=== PATIENT | male | born 1945 | race Caucasian/White ===

== ENCOUNTER 2020-07-07 01:36 | Inpatient (IN) | payer MEDICARE, OTHER ==
[~2020-07-07] VITALS: Ht 182.9 cm; Wt 90.4 kg
[2020-07-07 02:29] LABS: PCO2 Arterial 37.8 mmHg (35-45); PO2 Arterial 67.9 mmHg (80-100); pH Blood Arterial 7.44 (7.35-7.45)
[2020-07-07 02:38] LABS: Source, Urine Catheter
[2020-07-07] MEDS ORDERED: METO50ER (02:38)
[2020-07-07] MEDS ORDERED: ELIQUIS2.5 MG PO (02:38)
[2020-07-07] MEDS ORDERED: Amiodarone HCl200 MG PO (02:38)
[2020-07-07] MEDS ORDERED: QUET25 PO (02:38)
[2020-07-07 02:39] LABS: BASOPHILS ABSOLUTE AUTO 0.02 K/mm3 (0.00-0.23); BASOPHILS PERCENT AUTO 0 % (0-2); EOSINOPHILS ABSOLUTE AUTO 0.02 K/mm3 (0.00-0.68); EOSINOPHILS PERCENT AUTO 0 % (0-6); Hematocrit 40.3 % (37.0-53.0); Hemoglobin 13.5 g/dL (13.5-17.5); IMMATURE GRAN ABSOLUTE AUTO 0.04 K/mm3 (0.00-0.10); IMMATURE GRAN PERCENT AUTO 1 % (0-1); LYMPHOCYTES ABSOLUTE AUTO 0.94 K/mm3 (0.84-5.20); LYMPHOCYTES PERCENT AUTO 13 % (21-46); MONOCYTES ABSOLUTE AUTO 0.47 K/mm3 (0.16-1.47); MONOCYTES PERCENT AUTO 6 % (4-13); Mean Corpuscular HGB 29.6 pg (26.0-34.0); Mean Corpuscular HGB Conc 33.5 g/dL (31.5-36.5); Mean Corpuscular Volume 88 fL (80-100); Mean Platelet Volume 11.2 fL (9.1-12.4); NEUTROPHILS PERCENT AUTO 80 % (41-73); Platelet Count 129 K/mm3 (150-400); RDW Coefficient Variation 14.2 % (11.7-14.2); RDW Standard Deviation 45.7 fL (35.1-46.3); Red Blood Cell Count 4.56 M/mm3 (4.30-5.90); White Blood Cell Count 7.29 K/mm3 (4.00-11.30)
[2020-07-07] MEDS ORDERED: ATOR20 PO (02:39)
[2020-07-07] MEDS ORDERED: TAMS.4ER PO (02:39)
[2020-07-07 02:42] LABS: Bilirubin, Urine Neg (Neg); Blood, Urine Neg (Neg); Glucose Qualitative, Urine 4+ (Neg); Ketones, Urine Neg (Neg); Leukocyte Esterase, Urine Neg (Neg); Nitrite, Urine Neg (Neg); Protein, Urine 2+ (Neg); Urobilinogen, Urine NORM (Normal)
[2020-07-07 02:53] LABS: Albumin, Blood 3.6 g/dL (3.4-5.0); Albumin/Globulin Ratio 1.1 (0.8-1.8); Bilirubin, Total 0.7 mg/dL (0.1-1.0); Calcium, Blood 8.5 mg/dL (8.5-10.1); Creatinine, Blood 1.79 mg/dL (0.60-1.20); Globulin, Blood 3.2 g/dL (2.2-4.0); Potassium, Blood 3.8 mmol/L (3.5-5.5); Total Protein, Blood 6.8 g/dL (6.4-8.2); Troponin I 0.074 ng/mL (0.000-0.040)
[2020-07-07 02:56] LABS: Appearance, Urine Clear (Clear); Color, Urine Yellow (P-Yellow)
[2020-07-07 02:57] LABS: Bacteria Few /hpf; Red Blood Cells, Urine 0-2 /hpf (0-2); Squamous Epithelial Cells Not Seen /hpf (Few); White Blood Cells, Urine 0-2 /hpf (0-5)
[2020-07-07 06:10] LABS: BASOPHILS ABSOLUTE AUTO 0.03 K/mm3 (0.00-0.23); BASOPHILS PERCENT AUTO 0 % (0-2); EOSINOPHILS ABSOLUTE AUTO 0.03 K/mm3 (0.00-0.68); EOSINOPHILS PERCENT AUTO 0 % (0-6); Hematocrit 36.7 % (37.0-53.0); Hemoglobin 12.3 g/dL (13.5-17.5); IMMATURE GRAN ABSOLUTE AUTO 0.03 K/mm3 (0.00-0.10); IMMATURE GRAN PERCENT AUTO 0 % (0-1); LYMPHOCYTES ABSOLUTE AUTO 1.09 K/mm3 (0.84-5.20); LYMPHOCYTES PERCENT AUTO 12 % (21-46); MONOCYTES ABSOLUTE AUTO 0.73 K/mm3 (0.16-1.47); MONOCYTES PERCENT AUTO 8 % (4-13); Mean Corpuscular HGB 29.7 pg (26.0-34.0); Mean Corpuscular HGB Conc 33.5 g/dL (31.5-36.5); Mean Corpuscular Volume 89 fL (80-100); Mean Platelet Volume 11.2 fL (9.1-12.4); NEUTROPHILS ABSOLUTE AUTO 7.19 K/mm3 (1.96-9.15); NEUTROPHILS PERCENT AUTO 79 % (41-73); Platelet Count 132 K/mm3 (150-400); RDW Coefficient Variation 14.3 % (11.7-14.2); RDW Standard Deviation 46.2 fL (35.1-46.3); Red Blood Cell Count 4.14 M/mm3 (4.30-5.90)
[2020-07-07 06:27] LABS: Albumin, Blood 3.1 g/dL (3.4-5.0); Albumin/Globulin Ratio 1.1 (0.8-1.8); Bilirubin, Total 0.5 mg/dL (0.1-1.0); Bun/Creatinine Ratio 23.8 (12.0-20.0); Creatinine, Blood 1.64 mg/dL (0.60-1.20); Globulin, Blood 2.9 g/dL (2.2-4.0); Potassium, Blood 3.4 mmol/L (3.5-5.5)
--- NOTE | 2020-07-07 06:30 | NUR ---
PT ARRIVES TO ICU 4 FROM ED AT 0300. REPORT RECEIVED. PT TRANSFER PATIENT FROM [facility]. AMS WITH AGITATION. PROJECTILE VOMITING AND UNABLE TO PROTECT AIRWAY. PT INTUBATED. AC 14, 500, FIO2 35 %, PEEP 5. PT ON PROPOFOL AT 15 MCG'S/KG/MIN. VERSED DRIP AT 2MG. HAVE SINCE DECREASED TO 1.5 MG. PT MAINTAINS OXYGEN SATURATIONS > 90 PERCENT. SINUS REID FROM RATES OF 49- 50'S. BLOOD PRESSURES REMAINS STABLE WITH MAP REMAINING > 60. PT IN NO APPARENT DISTRESS. PT'S DAUGHTER DINA HAS CALLED TO CHECK ON PT. UPDATE GIVEN. SHE STATES THAT PT'S HAS DIFFICULTY WITH INFORMATION ON TELEPHONE AND HAS REQUESTED HERSELF TO BE FIRST CALL, AND THAT SHE WOULD RELAY INFORMATION TO HER MOTHER. PT ARRIVES WITH 95.0 TEMP PER MCFADDEN TEMP PROBE. TEMPORAL TEMPERATURE WAS 96.2. JOSHUA JUAREZ IN PLACE. PT CURRENTLY AT 98.0 PER TEMP PROBE. JOSHUA JUAREZ OFF. WILL CONTINUE TO MONITOR PT, AND WILL REPORT OFF TO ONCOMING RN.
--- NOTE | 2020-07-07 08:12 | NUR ---
Care assumed 0700 Pt intubated and sedated. Propofol GTT 10 mcg/kg/min, infusing via left wrist IV and Versed 1 mg/hr infusing via right wrist IV. Pt responds to noxious stimuli during oral care, unable to follow commands at this time. Temp bishop in place, draning to gravity, clear/yellow urine. HR 50'S and hypotensive. NSR. Vent settings AC 14/500/5/35%, SPO2 > 90%. Tolerating well.
--- NOTE | 2020-07-07 08:30 | NUR ---
PROVIDER VISIT Dr. Carlisle in to see patient. Versad GTT placed on standby. Propofol 10 mcg/kg/min. Recieved order for NS @ 75 ml/hr due to patients MAP low 60's.
--- NOTE | 2020-07-07 09:45 | NUR ---
Update- Neuro status Patient able to follow commands, moves all extrems on commands, equal strong human resources coordinator strength, nods "no" to being in pain, updated on event/location, made aware of intubation, and sedation medication. Propofol increased to 20 mcg/kg/min per patient request, pt resting/sleeping after. Eyes open/tracking and coughing occasionally.
[2020-07-07 10:38] LABS: Troponin I 0.075 ng/mL (0.000-0.040)
--- NOTE | 2020-07-07 10:40 | NUR ---
ECHOCARDIOGRAM COMPLETED
--- NOTE | 2020-07-07 13:30 | NUR ---
SBT Pt placed on PS 5/5, FIO2 40% and sedation stopped. Pt able to follow commands and tap on table to state when things needs. Pt did not pass SBT due to pulling low tidal volumes and falling asleep. Easily awaken with verbal stimuli but unable to pull tidal volumes for extubation. AC 14/500/5/35% , Vent settings and Propofol GTT restarted.
--- NOTE | 2020-07-07 14:00 | NUR ---
Update- hypotensive Pt restarted on NS at 75 ml/hr due to being hypotensive per Dr. Pond. Propofol GTT 20 MCG/KG/MIN. Pt sleeping, responds to noxious stimuli. Vent settings unchanged. Pt to be started on Precedex to decrease Propofol sedation per Dr. Pond.
--- NOTE | 2020-07-07 17:43 | NUR ---
Shift summary Intubated and sedated. Vent settings AC 14/500/5/35%, SPO2 > 90%. Precedex 0.5 mcg/kg/hr and Propofol 10 mcg/kg/min. Pt able to follow commands, opens eyes and nods yes/no when asking if in pain. Temp bishop in place, clear yellow urine, current temp 99.8. SWB in place. Sinus sonya (50's), Pt on NS @ 75 ml/hr for blood prssure support, MAP > 65. NSR. Daughter Hilda called and updated on patient status. Versed wasted with charge Nurse Martin, (80 ML).
--- NOTE | 2020-07-07 18:06 | NUR ---
Talbert Cath Present upon admission from [facility] transfer.
[2020-07-07 18:28] LABS: Troponin I 0.081 ng/mL (0.000-0.040)
--- NOTE | 2020-07-07 22:57 | NUR ---
SHIFT ASSESSMENT ASSUMED CARE OF PT @ 1900, REPORT RECEIVED FROM RUFINO CHE. PT INTUBATED AND SEDATED. VENT SETTINGS-14/500/5/35% c O2 SATS >90%. PROPOFOL GTT @ 10MCG/KG/MIN AND PRECEDEX @ 0.5. PT RESPONDS TO STIMULI, FOLLOWING COMMANDS, ATTEMPTING TO COMMUNICATE NEEDS. PT BECOMING MILDLY HYPERTENSIVE, ORDERS PLACED FOR PRN LABETOLOL. TEMP MCFADDEN CATH DRAINING YELLOW URINE. WILL CONTINUE TO MONITOR CLOSELY.
--- NOTE | 2020-07-08 00:38 | NUR ---
UPDATE PTS BP IS SLOWLY INCREASING. ORDER PLACED FOR PRN LABETOLOL AND MEDS WERE GIVEN WITH LITTLE RESPONSE. AWAITING CALL BACK FROM HOSPITALIST FOR MEDICATIONS.
[2020-07-08 03:42] LABS: BASOPHILS ABSOLUTE AUTO 0.03 K/mm3 (0.00-0.23); BASOPHILS PERCENT AUTO 0 % (0-2); EOSINOPHILS ABSOLUTE AUTO 0.07 K/mm3 (0.00-0.68); EOSINOPHILS PERCENT AUTO 1 % (0-6); Hematocrit 39.3 % (37.0-53.0); Hemoglobin 12.8 g/dL (13.5-17.5); IMMATURE GRAN ABSOLUTE AUTO 0.04 K/mm3 (0.00-0.10); IMMATURE GRAN PERCENT AUTO 1 % (0-1); LYMPHOCYTES ABSOLUTE AUTO 1.04 K/mm3 (0.84-5.20); LYMPHOCYTES PERCENT AUTO 12 % (21-46); MONOCYTES ABSOLUTE AUTO 0.54 K/mm3 (0.16-1.47); MONOCYTES PERCENT AUTO 6 % (4-13); Mean Corpuscular HGB 29.6 pg (26.0-34.0); Mean Corpuscular HGB Conc 32.6 g/dL (31.5-36.5); Mean Corpuscular Volume 91 fL (80-100); NEUTROPHILS ABSOLUTE AUTO 6.94 K/mm3 (1.96-9.15); NEUTROPHILS PERCENT AUTO 80 % (41-73); Platelet Count 120 K/mm3 (150-400); RDW Coefficient Variation 14.6 % (11.7-14.2); Red Blood Cell Count 4.32 M/mm3 (4.30-5.90); White Blood Cell Count 8.66 K/mm3 (4.00-11.30)
[2020-07-08 03:58] LABS: Albumin, Blood 2.9 g/dL (3.4-5.0); Albumin/Globulin Ratio 0.8 (0.8-1.8); Bilirubin, Total 0.5 mg/dL (0.1-1.0); Bun/Creatinine Ratio 18.2 (12.0-20.0); Calcium, Blood 8.1 mg/dL (8.5-10.1); Creatinine, Blood 1.43 mg/dL (0.60-1.20); Globulin, Blood 3.5 g/dL (2.2-4.0); Magnesium, Blood 2.4 mg/dL (1.6-2.4); Potassium, Blood 3.6 mmol/L (3.5-5.5); Total Protein, Blood 6.4 g/dL (6.4-8.2)
--- NOTE | 2020-07-08 06:03 | NUR ---
SHIFT SUMMARY PT REMAINS INTUBATED AND SEDATED, NO CHANGES TO VENT SETTINGS. ATTEMPTED TO TITRATE PROPOFOL DOWN BUT PT BECOMES AGITATED, POINTING TOWARDS ET TUBE, PULLING ON RESTRAINTS. PT ABLE TO FOLLOW COMMANDS, NODS HEAD TO QUESTIONING. SBP REMAINS ELEVATED, CONTROLLED c PRN LABETOLOL AND HYDRALIZINE. NO OTHER SIGNIFICANT CHANGES IN PT CONDITION, WILL CONTINUE TO MONITOR.
--- NOTE | 2020-07-08 07:50 | NUR ---
Care Assumed 0700 Pt intubated and sedated. Vent settings: AC 14/500/5/30%, spo2 > 90%. Sedated with Precedex 0.7 MCG/KG/HR and Propofol 10 mcg/kg/min. Pt thrashing in bed occasionally, requires frequent suctioning for small to mod thick griffith secreations. Following commands and able to be redirected. EYes open to verbal stumli and nods yes/no to questions. NSR, HR 50'S. SBP 160-170.
--- NOTE | 2020-07-08 09:40 | NUR ---
SBT -0904 PT CHANGED TO PS 5/5, 30%. Able to follow commands, opens eyes and moves all extrems. Able to nod yes/no to questions. Precedex 1 mcg/kg/hr and propofol on SB. Dr. Fabian at bedside. Pt requires frequent coaching due to falling asleep quickly and pulling low tidal volumes. BP 181/76, HR 50's, SPO2 > 97% NSR.
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
--- NOTE | 2020-07-08 13:33 | NUR ---
NG TUBE REMOVED - Update NG tube removed per Dr. Fabian. Pt tolerated well. Pt remains on 2 L via NC, SPO2 > 92%. VSS. HR 50'S. Pt A/O X 4. Able to follow directions and makes needs known. Asked if he would like family called to be updated. Pt denies this and states, "I just want to sleep."
--- NOTE | 2020-07-08 14:24 | NUR ---
Update- Transfer orders Patient changed to PCU status per dario Olvera to be removed. Pt made aware and states understanding. VSS.
--- NOTE | 2020-07-08 16:00 | NUR ---
Provider visit Dr. Fabian would like Dr. Alberts stopped for now. Patients HR low 50's. And would like Dr. Carlisle called and updated on pt status.
--- NOTE | 2020-07-08 16:24 | NUR ---
Transfer to PCU 5 Report given to Romana PCU 5 Nurse. Pt A/O X 4, TRANSFERD VIA [facility]. VSS. ON 2 L VIA NC, SPO2> 90%. ALL OF BELONGINGS SENT WITH PT. DENIES PAIN/N/V. NSR. DR. WEEKS CALLED AND UPDATED ON PT STATUS CHANGE. MCFADDEN REMOVED, NG REMOVED, AND PT ABLE TO TURN SELF IN BED.
--- NOTE | 2020-07-08 16:58 | NUR ---
UPDATE PT TRANSFERRED TO BED VIA GURNEY SLIDE TRANSFER. VS STABLE. O2 SATS REMAIN ABOVE 90% ON 2L NC. BP STABLE. HR SINUS REID. PT DENIES ANY PAIN. PT ORIENTED TO UNIT AND ROOM. BED ALARM ON FOR SAFETY. WILL CONTINUE TO MONITOR CLOSELY.
[2020-07-09 03:57] LABS: BASOPHILS ABSOLUTE AUTO 0.03 K/mm3 (0.00-0.23); BASOPHILS PERCENT AUTO 0 % (0-2); EOSINOPHILS ABSOLUTE AUTO 0.19 K/mm3 (0.00-0.68); EOSINOPHILS PERCENT AUTO 2 % (0-6); Hematocrit 39.5 % (37.0-53.0); Hemoglobin 12.6 g/dL (13.5-17.5); IMMATURE GRAN ABSOLUTE AUTO 0.02 K/mm3 (0.00-0.10); IMMATURE GRAN PERCENT AUTO 0 % (0-1); LYMPHOCYTES ABSOLUTE AUTO 1.41 K/mm3 (0.84-5.20); LYMPHOCYTES PERCENT AUTO 17 % (21-46); MONOCYTES ABSOLUTE AUTO 0.72 K/mm3 (0.16-1.47); MONOCYTES PERCENT AUTO 9 % (4-13); Mean Corpuscular HGB 29.7 pg (26.0-34.0); Mean Corpuscular HGB Conc 31.9 g/dL (31.5-36.5); Mean Corpuscular Volume 93 fL (80-100); NEUTROPHILS ABSOLUTE AUTO 5.85 K/mm3 (1.96-9.15); NEUTROPHILS PERCENT AUTO 71 % (41-73); Platelet Count 133 K/mm3 (150-400); RDW Coefficient Variation 14.8 % (11.7-14.2); RDW Standard Deviation 50.9 fL (35.1-46.3); Red Blood Cell Count 4.24 M/mm3 (4.30-5.90); White Blood Cell Count 8.22 K/mm3 (4.00-11.30)
[2020-07-09 04:15] LABS: Bun/Creatinine Ratio 15.2 (12.0-20.0); Calcium, Blood 8.2 mg/dL (8.5-10.1); Creatinine, Blood 1.45 mg/dL (0.60-1.20); Potassium, Blood 3.6 mmol/L (3.5-5.5)
--- NOTE | 2020-07-09 06:00 | NUR ---
Patient was alert and orientated, able to make needs known, talking in sleep tonight can be vulgar in nature, asked patient about it and he is aware. Using the urinal at the bedside, calls appropriately.
--- NOTE | 2020-07-09 08:00 | NUR ---
pt laying in bed awake watching tv, cooperative with care, follows commands well, denies pain at this time, lungs have an occ exp wheeze t/o, resp even and unlabored, no cough noted, hrr, tele in place running sr per monitor, see strip, no edema noted, ppp+1, cap refill <3sec, vs stable, afebrile, iv site is clear and patent, btx4, abd flat soft nontender, voids without diff, skin c/w/d, tamar cox, call light in reach, will be having a stress test done today.
--- NOTE | 2020-07-09 18:26 | NUR ---
PT HAD HIS STRESS TEST DONE, DOING OK, DID HAVE A FEW MINUTES OF BEING TEARFUL THIS EVENING, NO FURTHER CHANGES THIS SHIFT, CALL LIGHT IN REACH.
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
[2020-07-10] MEDS ORDERED: ASPI81CH PO (12:17)
[2020-07-10] MEDS ORDERED: LEVFLO500 PO (12:18)
--- NOTE | 2020-07-10 14:45 | NUR ---
PT'S IVs REMOVED AND PRESSURE DRESSED, IV CATH INTACT. PT EXPRESSED UNDERSTANDING OF NEW MEDICATIONS AND SIDE EFFECTS, PT AWARE THAT MEDICATIONS HAVE BEEN CALLED INTO HIS PHARMACY IN [place]. PT WAS D/C WITH ALL BELONGINGS
== END 2020-07-10 14:46 | disposition home or self-care (01) | DRG 280 ==
LOC: ER 01:36 → ICUW 02:30 → ICUE 02:30 → PCU 02:30 → ICUE 02:59 → PCU 07-08 16:45
PROVIDERS: Emergency Medicine; Internal Medicine; Internal Medicine Critical Care Medicine; ADMIT Internal Medicine
PROC: 5A1935Z Respiratory Ventilation, Less than 24 Consecutive Hours (ICD-10-PCS; principal; 2020-07-07)
DX: I16.1 Hypertensive emergency (principal); I21.A1 Myocardial infarction type 2; J18.9 Pneumonia, unspecified organism; J96.00 Acute respiratory failure, unspecified whether with hypoxia or hypercapnia; I67.4 Hypertensive encephalopathy; N17.9 Acute kidney failure, unspecified; I50.22 Chronic systolic (congestive) heart failure; M19.90 Unspecified osteoarthritis, unspecified site; E87.6 Hypokalemia; I11.0 Hypertensive heart disease with heart failure; E11.9 Type 2 diabetes mellitus without complications; Z87.891 Personal history of nicotine dependence; Z79.01 Long term (current) use of anticoagulants; Z79.899 Other long term (current) drug therapy
CPT/HCPCS: 36415; 36600; 71045; 78452; 80048; 80053; 81001; 82140; 82550; 82803; 82947; 83735; 83880; 84484; 85025; 87070; 87077; 87186; 87205; 92610; 93005; 93010; 93017; 93306; 94002; 94003; 96365; 99285-25; A9270; A9500; J0360; J0696; J0706; J1650; J2250; J2704; J2785; J3010; J3480; J7030